=== PATIENT | male | born 1955 | race Caucasian/White ===

== ENCOUNTER 2021-11-03 19:32 | Emergency (ER) | payer BC, OTHER ==
[2021-11-03 19:55] VITALS: BP 148/78; PULSE 105; TEMP 98.1; BMI 26.2
== END 2021-11-03 21:45 | disposition home or self-care (01) ==
LOC: JER 19:32
DX: U07.1 COVID-19 (principal)
CPT/HCPCS: 71046-TC-FY; 99283-25

== ENCOUNTER 2021-11-07 05:53 | Emergency (ER) | payer BC, OTHER ==
[2021-11-07 06:13] VITALS: BP 157/84; TEMP 98.3; BMI 25.8
[2021-11-07 07:39] VITALS: PULSE 100
[2021-11-07] MEDS ORDERED: ACETAMINOPHEN 1000 MG/100 ML VIAL IVPB ONE (07:47)
[2021-11-07] MEDS ORDERED: IBUPROFEN 600 MG TABLET (FP) PO ONE ×2 (07:47→07:55)
[2021-11-07] MEDS ORDERED: SODIUM CHLORIDE 0.9% 500 ML INFUS.BAG IV ONE (07:47)
[2021-11-07] MEDS ORDERED: ACETAMINOPHEN INJECTION 100 ML IVPB ONE (08:02)
[2021-11-07 08:43] LABS: PLATELET COUNT 149 10^3/uL (134-434); RBC 4.85 M/mm3 (4.00-5.60)
[2021-11-07 08:51] LABS: BASO % 0.3 % (0-2.0); EOS % 3.7 % (0-4.5); HEMATOCRIT 47.2 % (35.4-49); HEMOGLOBIN 15.8 GM/dL (11.7-16.9); LYMPH % 25.1 % (8-40); MCH 32.6 pg (25.7-33.7); MCHC 33.6 g/dl (32.0-35.9); MEAN CELL VOLUME 97.2 fl (80-96); MEAN PLT VOLUME 8.1 fl (7.5-11.1); MONO % 10.5 % (3.8-10.2); NEUT % 60.4 % (42.8-82.8); RDW 13.9 % (11.9-15.9); WHITE BLOOD COUNT 4.8 K/mm3 (4.0-10.0)
[2021-11-07 08:53] LABS: CALCIUM 8.6 mg/dL (8.5-10.1)
[2021-11-07 08:54] LABS: ALBUMIN 3.8 g/dl (3.4-5.0); BLOOD UREA NITROGEN 14.6 mg/dL (7-18)
[2021-11-07 08:57] LABS: CREATININE 0.9 mg/dL (0.55-1.3)
[2021-11-07 08:58] LABS: BILIRUBIN,TOTAL 0.4 mg/dL (0.2-1); TOT PROT 6.5 g/dl (6.4-8.2)
[2021-11-07 11:03] LABS: ANISOCYTOSIS 0; MACROCYTOSIS 0; PLATELET ESTIMATE DECREASED
== END 2021-11-07 11:19 | disposition home or self-care (01) ==
LOC: JER 05:53
PROC: 3E0333Z Introduction of Anti-inflammatory into Peripheral Vein, Percutaneous Approach (ICD-10-PCS; principal; 2021-11-07)
DX: U07.1 COVID-19 (principal); L04.0 Acute lymphadenitis of face, head and neck; R59.9 Enlarged lymph nodes, unspecified; Z85.6 Personal history of leukemia
CPT/HCPCS: 36415; 71045-TC-FY; 80053; 85025; 99284-25; J0131

== ENCOUNTER 2022-05-25 01:37 | Emergency (ER) | payer BC ==
[2022-05-25 01:54] VITALS: BP 167/80; PULSE 97; TEMP 97.4; BMI 26.6
[2022-05-25] MEDS ORDERED: IBUPROFEN 400 MG TABLET (FP) PO ONE ×2 (02:46→03:02)
== END 2022-05-25 04:35 | disposition home or self-care (01) ==
LOC: JER 01:37
DX: M54.50 Low back pain, unspecified (principal)
CPT/HCPCS: 99283-25